=== PATIENT | male | born 1975 | race Caucasian/White ===

== ENCOUNTER 2017-10-08 08:37 | Day surgery (SDC) | payer BC ==
[2017-10-08] MEDS ORDERED: PROPOFOL 20 ML ONE ×2 (09:31→12:21)
[2017-10-08 11:04] VITALS: BMI 34.4
[2017-10-08 12:46] VITALS: TEMP 98.2
[2017-10-08 13:05] VITALS: BP 115/69; PULSE 69
--- NOTE | 2017-10-12 19:22 | PATH ---
Surgical Pathology Report Patient Name: JUJU DE LA ROSA [facility]. Rec. #: [id number] /Age/Gender: 1975 (Age: 42) / M Account: [id number] [facility] Taken: 10/08/2017 Received: 10/08/2017 Reported: 10/12/2017 Physicians: Jessica Felton M.D. Specimen(s) Received A: BX ANTRUM B: BX SECOND PORTION OF DUODENUM C: GE JUNCTION Clinical History Dyspepsia, abdominal pain Postoperative diagnosis: Gastric ulcers Final Diagnosis A. ANTRUM, BIOPSY: MILD CHRONIC GASTRITIS. IMMUNOSTAIN IS NEGATIVE FOR H. PYLORI ORGANISMS. B. SECOND PORTION OF DUODENUM, BIOPSY: DUODENAL MUCOSA WITH NO PATHOLOGIC FINDINGS. C. GE JUNCTION, BIOPSY: ESOPHAGEAL (SQUAMOUS) MUCOSA WITH NO PATHOLOGIC FINDINGS. NO COLUMNAR EPITHELIUM/INTESTINAL METAPLASIA IS IDENTIFIED. Electronically Signed Iqra Cali M.D. Gross Description A. Received in formalin, labeled "biopsy antrum" are 2 simons, irregular portions of soft tissue measuring 0.1 and 0.5 cm. in greatest dimension. The specimens are submitted in toto in one cassette. B. Received in formalin, labeled "biopsy second portion of duodenum" is a simons, irregular portion of soft tissue measuring 0.2 cm. in greatest dimension. The specimen is submitted in toto in one cassette. C. Received in formalin, labeled "biopsy GE junction" is a simons, irregular portion of soft tissue measuring 0.3 cm. in greatest dimension. The specimen is submitted in toto in one cassette. 10/09/2017 saudi10/09/2017
== END 2017-10-08 13:10 | disposition home or self-care (01) ==
LOC: FASU-ENDO 08:37
PROVIDERS: ATTEND Internal Medicine Gastroenterology
PROC: 0DB68ZX Excision of Stomach, Via Natural or Artificial Opening Endoscopic, Diagnostic (ICD-10-PCS; 2017-10-08)
PROC: 0DB38ZX Excision of Lower Esophagus, Via Natural or Artificial Opening Endoscopic, Diagnostic (ICD-10-PCS; 2017-10-08)
PROC: 0DB98ZX Excision of Duodenum, Via Natural or Artificial Opening Endoscopic, Diagnostic (ICD-10-PCS; principal; 2017-10-08 12:19)
DX: K25.9 Gastric ulcer, unspecified as acute or chronic, without hemorrhage or perforation (principal); K29.50 Unspecified chronic gastritis without bleeding; R10.9 Unspecified abdominal pain
CPT/HCPCS: 88305-TC; 88342-TC